=== PATIENT | female | born 1980 | race Caucasian/White ===

== ENCOUNTER 2024-08-24 18:01 | Emergency (ER) | payer OTHER, MEDICAID, SELFPAY ==
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
[2024-08-24 18:43] VITALS: BP 142/85; PULSE 109; RESP 18; TEMP 36.8; O2SAT 100; BMI 35.9
[2024-08-24 22:04] VITALS: BP 126/79; PULSE 111; RESP 17; TEMP 36.6; O2SAT 98
[2024-08-24] MEDS: Ibuprofen 600 MG TABLET PO (22:23)
[2024-08-24 22:37] VITALS: BP 126/79; PULSE 111; RESP 17; TEMP 36.6; O2SAT 98
== END 2024-08-24 22:42 | disposition home or self-care (01) ==
PROVIDERS: Emergency Provider Internal Medicine
DX: Z04.1 Encounter for examination and observation following transport accident (principal); M54.6 Pain in thoracic spine; R51.9 Headache, unspecified; M54.2 Cervicalgia
CPT/HCPCS: 70450; 71045; 72125; 99284